=== PATIENT | male | born 1985 | race Caucasian/White ===

== ENCOUNTER 2022-01-20 01:27 | Emergency (ER) | payer SELFPAY ==
[~2022-01-20] VITALS: Ht 160 cm; Wt 84.1 kg
[2022-01-20 01:28] VITALS: TEMP 98.4
[2022-01-20 03:42] VITALS: BP 134/95; PULSE 89
== END 2022-01-20 03:43 | disposition home or self-care (01) ==
LOC: COL.ER 01:27
DX: F10.129 Alcohol abuse with intoxication, unspecified (principal); S01.511A Laceration without foreign body of lip, initial encounter; Y04.2XXA Assault by strike against or bumped into by another person, initial encounter